=== PATIENT | female | born 1930 | race Caucasian/White ===

== ENCOUNTER → 2016-09-16 | Outpatient (CLI) | payer MEDICARE, BC ==
[~2016-09-16] MED LIST: AKWASOL OU; ARNIGEL TOP; ASPI81TA85 PO; ATEN25TA PO; BACITAB3 PO; CLAR10CA3 PO; COLA100C PO; ENBR50IN2 SC; LEFL1TAB4 PO; LEVO75TA4 PO; LISI-538 PO; MILKSUS PO; MIRA3350 PO; NEUR300C PO; OMEP20CA3 PO; PERC5TAB6 PO; PRIL20CA9 PO; PROA1AER INH; SAVITAB PO; SENO8.6T2 PO; SYMB16INH INH; TORS10TA3 PO; TYLE500T78 PO; VITA200016 PO; XARE10TA PO
--- NOTE | 2016-09-16 19:44 | REP ---
Chest x-ray PA and lateral 09/16/2016: Comparison: 02/15/2016. Clinical history: Bronchitis, unspecified. Cough for 3 weeks. Findings: Lungs are adequately inflated. The right diaphragm shows elevation anteriorly but no pleural effusion, lateral pleural thickening, apical scarring or pneumothorax. There is some minor basilar atelectatic change along the diaphragm, but no consolidation. There is peribronchial thickening noted suggesting bronchitis or reactive airway disease. The aorta is calcified at the arch, mildly tortuous. Airway intact. No mediastinal or hilar mass. Bony thorax shows no focal lesion. Impression: 1. Perihilar changes of bronchitis or reactive airway disease without dense consolidation, effusion, cardiomegaly or edema. Some eventration right diaphragm. Minor compressive atelectatic changes adjacent. Signed by Javad Trinidad MD 09/16/2016 08:07 P
== END ==
LOC: M ADAMS 16:47
PROVIDERS: ATTEND Physician Assistant
DX: J40 Bronchitis, not specified as acute or chronic (principal)
CPT/HCPCS: 71020; G0463

== ENCOUNTER → 2017-03-05 | Outpatient (REF) | payer MEDICARE ==
[~2017-03-05] MED LIST changes: +BACITAB PO; -BACITAB3 PO; -COLA100C PO; +COLA100C5 PO; +PERC5TAB12 PO; -PERC5TAB6 PO; -PROA1AER INH; +PROAAER10 INH; -SENO8.6T2 PO; +SENO8.6T5 PO
[2017-03-05 13:22] LABS: ALBUMIN 3.7 GM/DL (3.2-5.2); ALBUMIN/GLOBULIN RATIO 1.23 (1.00-1.93); BILIRUBIN,TOTAL 0.4 MG/DL (0.2-1.0); CALCIUM LEVEL 8.8 MG/DL (8.8-10.2); CREATININE FOR GFR 1.09 MG/DL (0.55-1.02); FREE T4 0.93 NG/DL (0.76-1.46); GLOMERULAR FILTRATION RATE 50.5 (>32); POTASSIUM SERUM 4.4 MEQ/L (3.5-5.1); TOTAL PROTEIN 6.7 GM/DL (6.4-8.2)
== END ==
LOC: M SFHCADAM 08:52
PROVIDERS: ATTEND Physician Assistant
DX: I10 Essential (primary) hypertension (principal); E03.9 Hypothyroidism, unspecified; E78.4 Other hyperlipidemia

== ENCOUNTER → 2017-10-13 | Outpatient (CLI) | payer MEDICARE | LOC: M ADAMS 10:36 | DX: J45.901 Unspecified asthma with (acute) exacerbation (principal); J20.9 Acute bronchitis, unspecified | CPT/HCPCS: 71046 ==

== ENCOUNTER → 2017-11-03 | Outpatient (REF) | payer MEDICARE ==
[2017-11-03 13:26] LABS: HEMATOCRIT 37.1 % (36.0-47.0); MEAN CORPUSCULAR HEMOGLOBIN 31.7 pg (27.0-33.0); MEAN CORPUSCULAR HGB CONC 32.3 g/dl (32.0-36.5); MEAN CORPUSCULAR VOLUME 98.1 fl (80.0-96.0); PLATELET COUNT, AUTOMATED 212 10^3/uL (150-450); RED BLOOD COUNT 3.78 10^6/uL (4.00-5.40); RED CELL DISTRIBUTION WIDTH 14.2 % (11.5-14.5); WHITE BLOOD COUNT 6.8 10^3/uL (4.0-10.0)
[2017-11-03 13:44] LABS: ALBUMIN 3.8 GM/DL (3.2-5.2); ALBUMIN/GLOBULIN RATIO 1.41 (1.00-1.93); ALKALINE PHOSPHATASE 53 U/L (45-117); ALT/SGPT 16 U/L (12-78); ANION GAP 6 MEQ/L (8-16); AST/SGOT 8 U/L (7-37); BILIRUBIN,TOTAL 0.3 MG/DL (0.2-1.0); BLOOD UREA NITROGEN 37 MG/DL (7-18); CALCIUM LEVEL 8.9 MG/DL (8.8-10.2); CARBON DIOXIDE LEVEL 31 MEQ/L (21-32); CHLORIDE LEVEL 106 MEQ/L (98-107); CREATININE FOR GFR 1.28 MG/DL (0.55-1.30); GLOMERULAR FILTRATION RATE 41.9 (>32); GLUCOSE, FASTING 98 MG/DL (70-100); POTASSIUM SERUM 4.1 MEQ/L (3.5-5.1); SODIUM LEVEL 143 MEQ/L (136-145); TOTAL PROTEIN 6.5 GM/DL (6.4-8.2)
== END ==
LOC: M SFHCADAM 09:27
DX: I10 Essential (primary) hypertension (principal)
CPT/HCPCS: 80053

== ENCOUNTER 2017-11-16 00:21 | Emergency (ER) | payer MEDICARE ==
[2017-11-16] MEDS: ACETAMINOPHEN TAB 650MG DOSE (2X325MG) PO (02:33)
== END 2017-11-16 03:17 | disposition home or self-care (01) ==
LOC: M ED 03:17
DX: S46.911A Strain of unspecified muscle, fascia and tendon at shoulder and upper arm level, right arm, initial encounter (principal); M25.551 Pain in right hip; W07.XXXA Fall from chair, initial encounter; Y92.89 Other specified places as the place of occurrence of the external cause; I10 Essential (primary) hypertension; K21.9 Gastro-esophageal reflux disease without esophagitis; E78.5 Hyperlipidemia, unspecified; M06.9 Rheumatoid arthritis, unspecified; Z88.5 Allergy status to narcotic agent; Z88.8 Allergy status to other drugs, medicaments and biological substances; Z79.899 Other long term (current) drug therapy; Z79.51 Long term (current) use of inhaled steroids; Z79.82 Long term (current) use of aspirin; Z79.01 Long term (current) use of anticoagulants
CPT/HCPCS: 73030

== ENCOUNTER → 2018-02-10 | Outpatient (REF) | payer MEDICARE ==
[2018-02-10 20:00] LABS: CPK CREATINE PHOSPHOKINASE 93 U/L (26-192)
== END ==
LOC: M SFHCADAM 13:56
DX: R25.2 Cramp and spasm (principal)
CPT/HCPCS: 82550

== ENCOUNTER → 2018-02-15 | Outpatient (CLI) | payer MEDICARE | LOC: M RAD 11:17 | DX: N28.1 Cyst of kidney, acquired (principal) | CPT/HCPCS: 76775 ==

== ENCOUNTER 2018-05-29 07:35 | Emergency (ER) | payer MEDICARE ==
[2018-05-29 08:59] LABS: BASO % 0.6 % (0.0-1.0); EOS # 0.2 10^3/uL (0.0-0.50); EOS % 2.8 % (0.0-3.0); HEMATOCRIT 34.2 % (36.0-47.0); HEMOGLOBIN 10.8 g/dl (12.0-15.5); IMMATURE GRANULOCYTE % 0.3 % (0-3.0); LYMPH % 27.6 % (24.0-44.0); MEAN CORPUSCULAR HGB CONC 31.6 g/dl (32.0-36.5); MEAN CORPUSCULAR VOLUME 101.2 fl (80.0-96.0); MONO # 0.7 10^3/uL (0.0-0.8); MONO % 9.2 % (0.0-5.0); NEUTROPHILS # 4.2 10^3/uL (1.8-7.7); NEUTROPHILS % 59.5 % (36.0-66.0); PLATELET COUNT, AUTOMATED 197 10^3/uL (150-450); RED BLOOD COUNT 3.38 10^6/uL (4.00-5.40); RED CELL DISTRIBUTION WIDTH 13.3 % (11.5-14.5); WHITE BLOOD COUNT 7.1 10^3/uL (4.0-10.0)
[2018-05-29] MEDS: traMADol 50 MG TAB PO (08:59)
[2018-05-29 09:19] LABS: ERYTHROCYTE SEDIMENTATION RATE 34 mm/hr (0-42)
[2018-05-29 09:32] LABS: ALBUMIN 3.3 GM/DL (3.2-5.2); ALBUMIN/GLOBULIN RATIO 1.18 (1.00-1.93); ALKALINE PHOSPHATASE 60 U/L (45-117); ALT/SGPT 12 U/L (12-78); ANION GAP 9 MEQ/L (8-16); AST/SGOT 9 U/L (7-37); BILIRUBIN,DIRECT < 0.1 MG/DL (0.0-0.2); BILIRUBIN,TOTAL 0.2 MG/DL (0.2-1.0); BLOOD UREA NITROGEN 21 MG/DL (7-18); C REACTIVE PROTEIN QUANTITATIV 0.96 MG/DL (0.00-0.30); CALCIUM LEVEL 8.6 MG/DL (8.8-10.2); CARBON DIOXIDE LEVEL 25 MEQ/L (21-32); CHLORIDE LEVEL 107 MEQ/L (98-107); CREATININE FOR GFR 1.17 MG/DL (0.55-1.30); GLOMERULAR FILTRATION RATE 46.5 (>32); GLUCOSE, FASTING 83 MG/DL (70-100); POTASSIUM SERUM 4.2 MEQ/L (3.5-5.1); SODIUM LEVEL 141 MEQ/L (136-145); TOTAL PROTEIN 6.1 GM/DL (6.4-8.2)
[2018-05-29] MEDS: LIDOCAINE 5% (LIDODERM) PATCH TD (10:46)
[2018-05-29] MEDS ORDERED: **NOTE PATIENT COMMENT** MISC XX (21:00)
== END 2018-05-29 12:54 | disposition home or self-care (01) ==
LOC: M ED 07:35
DX: M48.00 Spinal stenosis, site unspecified (principal); M54.5 Low back pain; G89.29 Other chronic pain; R26.2 Difficulty in walking, not elsewhere classified; M79.7 Fibromyalgia; M06.9 Rheumatoid arthritis, unspecified; I10 Essential (primary) hypertension; E78.5 Hyperlipidemia, unspecified; E07.9 Disorder of thyroid, unspecified; J45.909 Unspecified asthma, uncomplicated; Z88.5 Allergy status to narcotic agent; Z88.8 Allergy status to other drugs, medicaments and biological substances; Z87.891 Personal history of nicotine dependence; Z79.899 Other long term (current) drug therapy; Z79.51 Long term (current) use of inhaled steroids; Z79.82 Long term (current) use of aspirin; Z79.01 Long term (current) use of anticoagulants
CPT/HCPCS: 93970

== ENCOUNTER → 2018-06-20 | Outpatient (REF) | payer MEDICARE ==
[2018-06-20 12:53] LABS: HEMOGLOBIN 11.1 g/dl (12.0-15.5); MEAN CORPUSCULAR HEMOGLOBIN 31.2 pg (27.0-33.0); MEAN CORPUSCULAR HGB CONC 30.8 g/dl (32.0-36.5); MEAN CORPUSCULAR VOLUME 101.1 fl (80.0-96.0); PLATELET COUNT, AUTOMATED 250 10^3/uL (150-450); RED BLOOD COUNT 3.56 10^6/uL (4.00-5.40); RED CELL DISTRIBUTION WIDTH 13.2 % (11.5-14.5); WHITE BLOOD COUNT 8.8 10^3/uL (4.0-10.0)
[2018-06-20 13:06] LABS: ALBUMIN 3.5 GM/DL (3.2-5.2); ALBUMIN/GLOBULIN RATIO 1.13 (1.00-1.93); ALKALINE PHOSPHATASE 72 U/L (45-117); ALT/SGPT 15 U/L (12-78); ANION GAP 8 MEQ/L (8-16); AST/SGOT 10 U/L (7-37); BILIRUBIN,TOTAL 0.3 MG/DL (0.2-1.0); BLOOD UREA NITROGEN 27 MG/DL (7-18); CALCIUM LEVEL 8.8 MG/DL (8.8-10.2); CARBON DIOXIDE LEVEL 28 MEQ/L (21-32); CHLORIDE LEVEL 106 MEQ/L (98-107); CHOLESTEROL LEVEL 223 MG/DL (<200); CHOLESTEROL RISK RATIO 4.129 (<5); CREATININE FOR GFR 1.15 MG/DL (0.55-1.30); GLOMERULAR FILTRATION RATE 47.4 (>32); GLUCOSE, FASTING 95 MG/DL (70-100); HDL CHOLESTEROL 54 MG/DL (>40); LDL CHOLESTEROL 138 MG/DL (<100); NON-HDL-C 169 MG/DL; POTASSIUM SERUM 4.6 MEQ/L (3.5-5.1); SODIUM LEVEL 142 MEQ/L (136-145); TOTAL PROTEIN 6.6 GM/DL (6.4-8.2); TRIGLYCERIDES LEVEL 154 MG/DL (<150)
== END ==
LOC: M SFHCADAM 08:05
DX: R25.2 Cramp and spasm (principal); I25.10 Atherosclerotic heart disease of native coronary artery without angina pectoris
CPT/HCPCS: 80053

== ENCOUNTER → 2018-11-23 | Outpatient (REF) | payer MEDICARE ==
[~2018-11-23] MED LIST changes: +LIDO5DIS41 TOP; +MILK120011 PO; -MILKSUS PO; +TRAM50TA2 PO
[2018-11-23 11:13] LABS: ALBUMIN 3.8 GM/DL (3.2-5.2); BILIRUBIN,TOTAL 0.3 MG/DL (0.2-1.0); CALCIUM LEVEL 8.4 MG/DL (8.8-10.2); CHOLESTEROL RISK RATIO 3.078 (<5); CREATININE FOR GFR 1.35 MG/DL (0.55-1.30); FREE T4 0.81 NG/DL (0.76-1.46); GLOMERULAR FILTRATION RATE 39.3 (>32); POTASSIUM SERUM 4.2 MEQ/L (3.5-5.1); THYROID STIMULATING HORMONE 4.89 uIU/ML (0.358-3.740); TOTAL PROTEIN 7.3 GM/DL (6.4-8.2)
== END ==
LOC: M SFHCADAM 09:11
PROVIDERS: ATTEND Physician Assistant
DX: I25.10 Atherosclerotic heart disease of native coronary artery without angina pectoris (principal); E03.9 Hypothyroidism, unspecified; I10 Essential (primary) hypertension

== ENCOUNTER → 2019-01-31 | Outpatient (REF) | payer MEDICARE ==
[2019-01-31 13:05] LABS: ALBUMIN 3.4 GM/DL (3.2-5.2); BILIRUBIN,TOTAL 0.3 MG/DL (0.2-1.0); CALCIUM LEVEL 8.6 MG/DL (8.8-10.2); CREATININE FOR GFR 1.14 MG/DL (0.55-1.30); GLOMERULAR FILTRATION RATE 47.8 (>32); POTASSIUM SERUM 4.4 MEQ/L (3.5-5.1); TOTAL PROTEIN 6.6 GM/DL (6.4-8.2)
== END ==
LOC: M SFHCADAM 08:30
PROVIDERS: ATTEND Physician Assistant
DX: M06.9 Rheumatoid arthritis, unspecified (principal)

== ENCOUNTER 2019-02-08 10:17 | Emergency (ER) | payer MEDICARE ==
[2019-02-08] MEDS ORDERED: GABAPENTIN 300 MG CAP PO ONE (11:15)
[2019-02-08] MEDS ORDERED: ACETAMINOPHEN 500 MG TAB PO ONE (11:15)
[2019-02-08] MEDS ORDERED: LIDOCAINE 5% (LIDODERM) PATCH TD ONE (11:15)
[2019-02-08] MEDS ORDERED: traMADol 50 MG TAB PO ONE (14:00)
[2019-02-08 16:55] VITALS: BP 139/63
--- NOTE | 2019-02-08 20:10 | ECGEPIP ---
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
[2019-02-08] MEDS ORDERED: **NOTE PATIENT COMMENT** MISC XX SCH (21:00)
== END 2019-02-08 17:22 | disposition home or self-care (01) ==
LOC: M ED 10:17
DX: M48.00 Spinal stenosis, site unspecified (principal); I10 Essential (primary) hypertension; J45.909 Unspecified asthma, uncomplicated; M06.9 Rheumatoid arthritis, unspecified; E78.9 Disorder of lipoprotein metabolism, unspecified; E07.9 Disorder of thyroid, unspecified; Z79.899 Other long term (current) drug therapy; Z79.890 Hormone replacement therapy; Z79.82 Long term (current) use of aspirin; Z88.5 Allergy status to narcotic agent; Z88.8 Allergy status to other drugs, medicaments and biological substances; Z87.891 Personal history of nicotine dependence

== ENCOUNTER → 2019-02-21 | Outpatient (REF) | payer MEDICARE ==
[2019-02-21 12:35] LABS: HEMATOCRIT 36.6 % (36.0-47.0); HEMOGLOBIN 11.2 g/dl (12.0-15.5); MEAN CORPUSCULAR HEMOGLOBIN 31.6 pg (27.0-33.0); MEAN CORPUSCULAR HGB CONC 30.6 g/dl (32.0-36.5); MEAN CORPUSCULAR VOLUME 103.4 fl (80.0-96.0); PLATELET COUNT, AUTOMATED 245 10^3/uL (150-450); RED BLOOD COUNT 3.54 10^6/uL (4.00-5.40); WHITE BLOOD COUNT 10.5 10^3/uL (4.0-10.0)
[2019-02-21 13:16] LABS: ALBUMIN 3.2 GM/DL (3.2-5.2); BILIRUBIN,TOTAL 0.2 MG/DL (0.2-1.0); CALCIUM LEVEL 8.8 MG/DL (8.8-10.2); CREATININE FOR GFR 1.07 MG/DL (0.55-1.30); GLOMERULAR FILTRATION RATE 51.4 (>32); POTASSIUM SERUM 3.9 MEQ/L (3.5-5.1); TOTAL PROTEIN 6.5 GM/DL (6.4-8.2)
== END ==
LOC: M SFHCADAM 10:37
PROVIDERS: ATTEND Physician Assistant
DX: I51.89 Other ill-defined heart diseases (principal)

== ENCOUNTER → 2019-02-21 | Outpatient (CLI) | payer MEDICARE ==
[~2019-02-21] MED LIST changes: +ACET500T15 PO; +ALBU83IN INH; +BISO5TAB5 PO; +CALC600T18 PO; +FLON1SPR NARES; +GABA-843 PO; +LORA-622 PO; +REFR0.5D8 OU; +SULF50TA PO; +SYNT75TA PO; +TIZA4TAB4 PO; +VITA200021 PO
--- NOTE | 2019-02-21 12:29 | REP ---
PA and lateral chest: Comparison is 10/13/2017. There is chronic elevation of the right hemidiaphragm. This is unchanged. This is likely from eventration. Lung albarran are clear and unchanged. Cardiac size is upper normal, unchanged. The ondina and mediastinum are unchanged unremarkable. There is grade 2 wedge shaped compression deformity of the approximate T7 vertebral body as an interval change. The skeletal structures are otherwise unremarkable. Impression: Chronic elevation of the right hemidiaphragm. Lung albarran are clear. Grade 2 wedge shaped compression deformity of the approximate T7 vertebral body as an interval change. Electronically Signed by Marcel Garcia MD 02/21/2019 12:20 P
== END ==
LOC: M ADAMS 10:56
PROVIDERS: ATTEND Physician Assistant
DX: I51.89 Other ill-defined heart diseases (principal)
CPT/HCPCS: 71046; 80053; 83880; 85027; G0463

== ENCOUNTER 2019-02-24 11:02 | Inpatient (IN) | payer MEDICARE ==
[~2019-02-24] VITALS: Ht 149.9 cm; Wt 83.8 kg
[~2019-02-24 11:02] MED LIST changes: -ACET500T15 PO; -ALBU83IN INH; -BISO5TAB5 PO; -CALC600T18 PO; -FLON1SPR NARES; -GABA-843 PO; -LORA-622 PO; -REFR0.5D8 OU; -SULF50TA PO; -SYNT75TA PO; -TIZA4TAB4 PO; -VITA200021 PO
[2019-02-24] MEDS ORDERED: NS 500 ML IV ONE ×2 (11:15→11:45)
[2019-02-24] MEDS ORDERED: GLUCAGON FOR INJ 1 MG VIAL (J1610) IV STA (11:16)
[2019-02-24 11:29] LABS: BASO # 0.1 10^3/uL (0.0-0.2); BASO % 0.5 % (0.0-1.0); EOS # 0.3 10^3/uL (0.0-0.50); EOS % 2.4 % (0.0-3.0); HEMATOCRIT 31.5 % (36.0-47.0); LYMPH # 2.2 10^3/uL (1.5-4.5); LYMPH % 18.6 % (24.0-44.0); MEAN CORPUSCULAR HEMOGLOBIN 32.4 pg (27.0-33.0); MEAN CORPUSCULAR HGB CONC 31.7 g/dl (32.0-36.5); MEAN CORPUSCULAR VOLUME 101.9 fl (80.0-96.0); MONO # 1.1 10^3/uL (0.0-0.8); MONO % 8.8 % (0.0-5.0); NEUTROPHILS # 8.3 10^3/uL (1.8-7.7); NEUTROPHILS % 69.1 % (36.0-66.0); PLATELET COUNT, AUTOMATED 222 10^3/uL (150-450); RED BLOOD COUNT 3.09 10^6/uL (4.00-5.40)
--- NOTE | 2019-02-24 11:36 | REP ---
Portable chest x-ray: Single view. History: Drug overdose. Comparison study: February 21. Findings: The lungs are exposed at a relatively low level of inspiration. Right hemidiaphragm is elevated unchanged. No infiltrate is seen. Mild cardiomegaly is observed. The aorta is calcific and tortuous. Pulmonary vasculature is not increased. EKG electrodes are seen. No significant bony abnormality is seen. Impression: No acute disease. Electronically Signed by Reginald Lyles MD 02/24/2019 11:28 A
[2019-02-24 12:00] LABS: ACETAMINOPHEN LEVEL 7.7 UG/ML (10.0-30.0); ALBUMIN 2.8 GM/DL (3.2-5.2); ALT/SGPT 14 U/L (12-78); BILIRUBIN,DIRECT < 0.1 MG/DL (0.0-0.2); BILIRUBIN,TOTAL 0.1 MG/DL (0.2-1.0); BLOOD UREA NITROGEN 25 MG/DL (7-18); CALCIUM LEVEL 8.4 MG/DL (8.8-10.2); CARBON DIOXIDE LEVEL 28 MEQ/L (21-32); CHLORIDE LEVEL 102 MEQ/L (98-107); CPK CREATINE PHOSPHOKINASE 95 U/L (26-192); CREATININE FOR GFR 1.41 MG/DL (0.55-1.30); ETHYL ALCOHOL (ETHANOL) 0.003 % (0.000-0.010); GLOMERULAR FILTRATION RATE 37.4 (>32); GLUCOSE, FASTING 147 MG/DL (70-100); POTASSIUM SERUM 4.3 MEQ/L (3.5-5.1); SALICYLATE LEVEL < 1.7 MG/DL (5.0-30.0); SODIUM LEVEL 139 MEQ/L (136-145); TOTAL PROTEIN 5.8 GM/DL (6.4-8.2)
[2019-02-24] MEDS ORDERED: NALOXONE INJ 0.4 MG/1 ML VIAL (J2310) IV STA (12:27)
--- NOTE | 2019-02-24 12:29 | REP ---
CT BRAIN WITHOUT CONTRAST: HISTORY: Drug overdose. Comparison CT study October 23, 2014. 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 Bone window settings show no bony calvarial destructive lesion. Visualized paranasal sinuses are clear. Vascular calcification is again noted in the distal carotid arteries. No intraorbital abnormality. There is diffuse moderate cerebral atrophy again noted. Minimal small vessel changes are present. There is no evidence of infarct, hemorrhage, extra-axial fluid collection or mass. IMPRESSION: Vascular calcification and diffuse atrophy. No acute intracranial abnormality. Electronically Signed by Reginald Lyles MD 02/24/2019 03:34 P
[2019-02-24] MEDS ORDERED: CALC600T18 PO (13:18)
[2019-02-24] MEDS ORDERED: OMEP20CA3 PO (13:18)
[2019-02-24] MEDS ORDERED: TRAM50TA2 PO (13:18)
[2019-02-24] MEDS ORDERED: GABA-843 PO (13:18)
[2019-02-24] MEDS ORDERED: SAVITAB PO (13:18)
[2019-02-24] MEDS ORDERED: REFR0.5D8 OU (13:18)
[2019-02-24] MEDS ORDERED: ALBU83IN INH (13:18)
[2019-02-24] MEDS ORDERED: LISI-538 PO (13:18)
[2019-02-24] MEDS ORDERED: SULF50TA PO (13:18)
[2019-02-24] MEDS ORDERED: SYMB16INH INH (13:18)
[2019-02-24] MEDS ORDERED: TORS10TA3 PO (13:18)
[2019-02-24] MEDS ORDERED: SYNT75TA PO (13:18)
[2019-02-24] MEDS ORDERED: BISO5TAB5 PO (13:18)
[2019-02-24] MEDS ORDERED: FLON1SPR NARES (13:18)
[2019-02-24] MEDS ORDERED: ASPI81TA85 PO (13:18)
[2019-02-24] MEDS ORDERED: LORA-622 PO (13:18)
[2019-02-24] MEDS ORDERED: MIRA3350 PO (13:18)
[2019-02-24] MEDS ORDERED: ACET500T15 PO (13:18)
[2019-02-24] MEDS ORDERED: TIZA4TAB4 PO (13:18)
[2019-02-24] MEDS ORDERED: VITA200021 PO (13:18)
[2019-02-24] MEDS ORDERED: PROAAER10 INH (13:18)
--- NOTE | 2019-02-24 14:29 | HPE ---
DATE OF ADMISSION: 02/24/2019 CHIEF COMPLAINT: Unintentional overdose of tizanidine. HISTORY: Kenya Jenkins is an 88-year-old patient of CLAUDIA Hayden in the [facility]. She has been in failing health and failing memory, particularly more so over the last year. Today she was brought to the operating room after apparently taking an unintentional overdose of tizanidine which she receives from [facility] for her chronic back pain. Per the emergency room, there were an unspecified number of medications that were missing. In the emergency room, she was bradycardic with a heart rate in the 40s, and systolic blood pressure in the mid 80s. Because she has beta barb at home she was given some empiric glucagon in the emergency room without significant improvement in her vital signs. There is an unspecified number of tizanidine that are missing, but per emergency room staff the bottle was nearly empty, when she should have by reports had at least a half a bottle. The patient denies taking an excess number of these. She thinks she might have been taking two at a time rather one at a time per dose. PAST MEDICAL HISTORY: Shows: Rheumatoid arthritis. She is seen by Dr. Lawrence. She used to be followed by [facility]. She was on Enbrel in the past, now on sulfasalazine. Coronary artery disease (CAD). She had a nuclear stress test 03/2014, abnormal perfusion, probably some apical ischemia, ejection fraction of 74%. She has lumbosacral spinal stenosis followed by Dr. Umaña at the [facility]. She gets physical therapy through there. They have prescribed tizanidine and tramadol for her back pain. She had an echocardiogram 2017, normal ventricular size and systolic function. Minor diastolic dysfunction noted. She has a history of hypertensive heart disease. Hyperlipidemia. Hypothyroidism. Vitamin D deficiency. Asthma. MEDICATIONS: Office list is : - sulfasalazine 500 mg twice a day - omeprazole 20 mg daily - vitamin D 2000 units daily - albuterol nebulizer three times a day - aspirin 81 mg daily - albuterol puffer as needed - gabapentin 300 mg three times a day - Flonase spray - MiraLAX - Symbicort 160-4.5, two puffs twice a day - Claritin - tramadol 50 mg every 4 hours as needed - bisoprolol 5 mg daily - levothyroxine 75 mcg daily - torsemide 10 mg tablets, two tablets in the morning and one tablet in the afternoon - lisinopril 20 mg daily ALLERGIES: 1. MORPHINE causes nausea and vomiting. 2. TESSALON PERLES caused her face to swell. SURGICAL HISTORY: Bilateral knee replacements. Hysterectomy. Appendectomy. Tonsillectomy. Carpal tunnel release bilaterally. Cataract extraction. Right hip open reduction internal fixation (ORIF) after fracture 04/2015. She had a coloscopy in 2013 with polypectomy. FAMILY HISTORY: Father of a stroke. Mother of heart problems. She has an aunt with rheumatoid arthritis. She had a sister who of unspecified cancer. Another sister of Alzheimer's complications. SOCIAL HISTORY: Former smoker, quit 50 years ago. No significant alcohol intake. She is . She lives alone. REVIEW OF SYSTEMS: No chest pain. History of seizures. Denies any recent falls, though office record from 02/21/2019 says she fell recently trying to get into bed. No palpitations. No chest pain. PHYSICAL EXAMINATION: Systolic blood pressure is in the 80s, heart rate in the 40s, sinus bradycardia. Vital signs per flow sheet. General appearance: Alert and conversant. Recognizes me from hallway. Pupils equal, round and reactive to light. Tympanic membranes and oropharynx benign. Neck no masses. Lungs clear. Heart regular rhythm without murmur. Abdomen soft, nontender. No masses. No peripheral edema. Moves arms and legs with equal strength. EKG shows sinus bradycardia with prolonged QT interval. Toxicology screen unremarkable. White count 12, hemoglobin 10, which is baseline, platelets are 222. Sodium 139, potassium 4.3, BUN 25, creatinine 1.4, baseline creatinine is around 1. Chest x-ray showed no active disease. CT of the head atrophy, no acute findings. IMPRESSION: 1. Unintentional overdose of tizanidine. She will be admitted to a monitored bed. She is bradycardic and hypotensive, but is tolerating this well. I have ordered IV saline and telemetry monitoring. I do not think she overdosed on her beta-barb as she had no significant response to the glucagon. TSH is a little suppressed, but the dose of levothyroxine was only recently increased. Repeat EKG ordered for tomorrow. If her heart rate is improved and blood pressure is back to baseline she will probably go home tomorrow. 2. Hypertensive heart disease. Hold her lisinopril and bisoprolol for now. 3. Rheumatoid arthritis. Continue her sulfasalazine. Per primary provider she was recently weaned off prednisone. She seemed much more functional when she was taking this, more arthritic pain since stopped. 4. Hypothyroidism. Continue levothyroxine 75 mcg daily. 5. Asthma. Continue her nebulized bronchodilator and albuterol on an as needed basis. 6. Deep vein thrombosis (DVT) prophylaxis with heparin has been ordered.
[2019-02-24] MEDS: KCL 20MEQ in NS 1000ML 1,000 ML IV SCH ×2 (14:49→23:45)
[2019-02-24] MEDS: ASPIRIN 81 MG ENTERIC TAB PO SCH (14:49)
[2019-02-24] MEDS: OMEPRAZOLE 20 MG CAP PO SCH (14:49)
[2019-02-24 16:00] VITALS: BP 127/56
[2019-02-24] MEDS: GABAPENTIN 300 MG CAP PO SCH ×2 (17:20→20:21)
[2019-02-24] MEDS: HEPARIN SOD (PORCINE) 5000 UNITS/ML VIAL SQ SCH (20:21)
[2019-02-24] MEDS: sulfaSALAzine 500 MG TABEC PO SCH (20:21)
[2019-02-24] MEDS: ACETAMINOPHEN 500 MG TAB PO PRN (21:41)
[2019-02-24] MEDS: SYMBICORT 160/4.5MCG INHALER 6GM INH SCH (21:43)
[2019-02-24 22:00] VITALS: BP 144/66
[2019-02-25] VITALS: BP 131/62
[2019-02-25 04:00] VITALS: BP 126/60
[2019-02-25 05:03] LABS: HEMOGLOBIN 9.2 g/dl (12.0-15.5); MEAN CORPUSCULAR HEMOGLOBIN 31.6 pg (27.0-33.0); MEAN CORPUSCULAR HGB CONC 31.7 g/dl (32.0-36.5); MEAN CORPUSCULAR VOLUME 99.7 fl (80.0-96.0); PLATELET COUNT, AUTOMATED 196 10^3/uL (150-450); RED BLOOD COUNT 2.91 10^6/uL (4.00-5.40); WHITE BLOOD COUNT 7.9 10^3/uL (4.0-10.0)
[2019-02-25 05:32] LABS: CALCIUM LEVEL 7.9 MG/DL (8.8-10.2); CREATININE FOR GFR 0.98 MG/DL (0.55-1.30); GLOMERULAR FILTRATION RATE 56.9 (>32); POTASSIUM SERUM 4.3 MEQ/L (3.5-5.1)
[2019-02-25] MEDS: LEVOTHYROXINE 75MCG TABLET (0.075MG) PO SCH (06:15)
[2019-02-25] MEDS: ACETAMINOPHEN 500 MG TAB PO PRN ×2 (06:15→15:39)
[2019-02-25] MEDS: KCL 20MEQ in NS 1000ML 1,000 ML IV SCH ×3 (07:53→22:00)
[2019-02-25] MEDS: SYMBICORT 160/4.5MCG INHALER 6GM INH SCH ×2 (07:55→21:22)
[2019-02-25 08:00] VITALS: BP 164/73
[2019-02-25] MEDS: ASPIRIN 81 MG ENTERIC TAB PO SCH (09:35)
[2019-02-25] MEDS: sulfaSALAzine 500 MG TABEC PO SCH ×2 (09:35→21:00)
[2019-02-25] MEDS: FLUTICASONE PROP 0.05% NASAL SPRAY 16 GM (FLONASE) NARES SCH (09:35)
[2019-02-25] MEDS: GABAPENTIN 300 MG CAP PO SCH ×3 (09:36→21:00)
[2019-02-25] MEDS: HEPARIN SOD (PORCINE) 5000 UNITS/ML VIAL SQ SCH ×2 (09:36→21:00)
[2019-02-25] MEDS: OMEPRAZOLE 20 MG CAP PO SCH (09:36)
[2019-02-25 12:00] VITALS: BP 173/69
[2019-02-25 16:00] VITALS: BP 170/84
--- NOTE | 2019-02-25 17:03 | ECGEPIP ---
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
--- NOTE | 2019-02-25 17:23 | IPNPDOC ---
Subjective Date Seen The patient was seen on 02/25/19. Subjective Chief Complaint/HPI Seen in PCU, with daughter at the bedside. She admits that she confused her medication yesterday, though she can not name which medications she should have been taking, or any of them, really. Daughter states that on a weekly basis she could set out her mother's medications, but that she could not monitor medications on a daily basis. Patient states that she has been doing PT on an outpatient basis, though her swollen feet make it uncomfortable. Daughter states that she and her son have been encouraging their mother to consider assisted living, but patient is uninterested, states that her current apartment is affordable and has safety features that allow her to call for help. She states that she has an aide in home for a limited time, but has been told that she would qualify for more. Constitutional: Denies: Chills, Fever ENT: Denies: Head Aches Pulmonary: Denies: Dyspnea, Cough Cardiovascular: Denies: Chest Pain Gastrointestinal: Denies: Nausea, Vomiting, Diarrhea, Constipation Neurological: Reports: Other Symptoms (no dizziness); Denies: Weakness, Change in speech (though admits it yesterday) Objective Physical Examination General Exam: Positive: Alert, Cooperative, No Acute Distress Eye Exam: Positive: Conjunctiva & lids normal ENT Exam: Positive: Mucous membr. moist/pink Chest Exam: Positive: Clear to auscultation, Normal air movement Heart Exam: Positive: Rate Normal, Regular Rhythm; Negative: Bradycardic Extremity Exam: Negative: Swelling Skin Exam: Positive: Nl turgor and temperature; Negative: Rash Neuro Exam: Positive: Normal Speech Psych Exam: Positive: Memory Intact Assessment /Plan Problems (1) Accidental overdose Status: Acute Problem Text: Discussed with daughter the need for patient to not set out her own medications upon discharge. Daughter states that she can set them out a week at time, if patient is discharged to home. (2) Bradycardia Status: Resolved Problem Text: Secondary to medication overdose. Now resolved. (3) Hypotension Status: Resolved Problem Text: Hypotension now resolved, and patient is back on home bisoprolol and Lasix. (4) Physical deconditioning Problem Text: PT consulted, patient is not deemed safe for discharge at this time. May require AL or SNF upon DC, will see how she progresses. Plan/VTE VTE Prophylaxis Ordered?: Yes VS, I&O, 24H, Fishbone Vital Signs/I&O Vital Signs Date Time Temp Pulse Resp B/P (MAP) Pulse Ox O2 Delivery O2 Flow Rate FiO2 02/25/19 16:00 97.6 89 18 170/84 (112) 94 02/24/19 15:00 Nasal Cannula 1.0 I&O- Last 24 Hours up to 6 AM 02/25/19 06:00 Intake Total 3090 ml Output Total 725 ml Balance 2365 ml Laboratory Data 24H LABS Laboratory Tests 2 02/25/19 04:43: Nucleated Red Blood Cells % (auto) 0.0, Anion Gap 5L, Glomerular Filtration Rate 56.9, Blood Urea Nitrogen 20H, Creatinine 0.98, Sodium Level 142, Potassium Level 4.3, Chloride Level 110H, Carbon Dioxide Level 27, Calcium Level 7.9L CBC/BMP Laboratory Tests 02/25/19 04:43 Red Blood Count 2.91 L, Mean Corpuscular Volume 99.7 H, Mean Corpuscular Hemoglobin 31.6, Mean Corpuscular Hemoglobin Concent 31.7 L, Red Cell D istribution Width 13.9, Calcium Level 7.9 L PREMA FIGUEROA DO Feb 25, 2019 17:23
[2019-02-25] MEDS: BISOPROLOL FUMARATE 5 MG TAB PO SCH (17:30)
[2019-02-25] MEDS: TORSEMIDE 20 MG TAB PO SCH (17:30)
[2019-02-26] VITALS (7 sets, daily range): BP systolic 120–167; BP diastolic 60–72
[2019-02-26 05:19] LABS: HEMOGLOBIN 10.3 g/dl (12.0-15.5); MEAN CORPUSCULAR HEMOGLOBIN 31.5 pg (27.0-33.0); MEAN CORPUSCULAR HGB CONC 31.2 g/dl (32.0-36.5); MEAN CORPUSCULAR VOLUME 100.9 fl (80.0-96.0); PLATELET COUNT, AUTOMATED 239 10^3/uL (150-450); RED BLOOD COUNT 3.27 10^6/uL (4.00-5.40); WHITE BLOOD COUNT 10.8 10^3/uL (4.0-10.0)
[2019-02-26 05:43] LABS: CALCIUM LEVEL 8.5 MG/DL (8.8-10.2); CREATININE FOR GFR 1.11 MG/DL (0.55-1.30); GLOMERULAR FILTRATION RATE 49.3 (>32); POTASSIUM SERUM 4.5 MEQ/L (3.5-5.1)
[2019-02-26] MEDS: KCL 20MEQ in NS 1000ML 1,000 ML IV SCH (06:31)
--- NOTE | 2019-02-26 06:35 | ECGEPIP ---
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
[2019-02-26] MEDS: SYMBICORT 160/4.5MCG INHALER 6GM INH SCH ×2 (07:09→20:20)
[2019-02-26] MEDS: HEPARIN SOD (PORCINE) 5000 UNITS/ML VIAL SQ SCH ×2 (09:59→20:22)
[2019-02-26] MEDS: sulfaSALAzine 500 MG TABEC PO SCH ×2 (09:59→20:22)
[2019-02-26] MEDS: OMEPRAZOLE 20 MG CAP PO SCH (09:59)
[2019-02-26] MEDS: ASPIRIN 81 MG ENTERIC TAB PO SCH (09:59)
[2019-02-26] MEDS: BISOPROLOL FUMARATE 5 MG TAB PO SCH (09:59)
[2019-02-26] MEDS: GABAPENTIN 300 MG CAP PO SCH ×3 (09:59→20:22)
[2019-02-26] MEDS: TORSEMIDE 20 MG TAB PO SCH ×2 (09:59→17:35)
[2019-02-26] MEDS: FLUTICASONE PROP 0.05% NASAL SPRAY 16 GM (FLONASE) NARES SCH (10:00)
[2019-02-26] MEDS: ONDANSETRON 4MG/2ML VIAL (J2405) IV PRN (10:21)
[2019-02-26] MEDS: ACETAMINOPHEN 500 MG TAB PO PRN ×2 (10:21→23:20)
[2019-02-26] MEDS: LISINOPRIL 20 MG TAB PO SCH (12:54)
--- NOTE | 2019-02-26 21:52 | IPNPDOC ---
Subjective Date Seen The patient was seen on 02/26/19. Subjective Chief Complaint/HPI She complains of some malaise today, notes that she vomited earlier today and had been coughing. Otherwise denies complaints. Constitutional: Denies: Chills, Fever Pulmonary: Reports: Cough; Denies: Dyspnea Cardiovascular: Denies: Chest Pain Gastrointestinal: Reports: Nausea, Vomiting; Denies: Abdominal Pain, Diarrhea, Constipation Objective Physical Examination General Exam: Positive: Alert, Cooperative, No Acute Distress Eye Exam: Positive: Conjunctiva & lids normal ENT Exam: Positive: Mucous membr. moist/pink Chest Exam: Positive: Clear to auscultation, Normal air movement Heart Exam: Positive: Rate Normal, Regular Rhythm; Negative: Bradycardic Extremity Exam: Negative: Swelling Skin Exam: Positive: Nl turgor and temperature; Negative: Rash Neuro Exam: Positive: Normal Speech Psych Exam: Positive: Memory Intact Assessment /Plan Problems (1) Accidental overdose Status: Acute Problem Text: Discussed with daughter the need for patient to not set out her own medications upon discharge. Daughter states that she can set them out a week at time, if patient is discharged to home. (2) Physical deconditioning Problem Text: PT consulted, patient is not deemed safe for discharge at this time. May require AL or SNF upon DC, will see how she progresses. (3) Bradycardia Status: Resolved Problem Text: Secondary to medication overdose. Now resolved. (4) Hypotension Status: Resolved Problem Text: Hypotension now resolved, and patient is back on home bisoprolol and Lasix. (5) Vomiting Problem Text: She admits to an episode of vomiting this morning. When asked, denies bloody or coffee ground emesis. She did state that she "swallowed it really quickly, and it made me sicker." Denied inhaling it. Benign abdominal exam, and nause improved after Zofran; will continue to monitor. Plan/VTE VTE Prophylaxis Ordered?: Yes VS, I&O, 24H, Fishbone Vital Signs/I&O Vital Signs Date Time Temp Pulse Resp B/P (MAP) Pulse Ox O2 Delivery O2 Flow Rate FiO2 02/26/19 20:00 98.8 94 18 146/65 (92) 90 02/24/19 15:00 Nasal Cannula 1.0 I&O- Last 24 Hours up to 6 AM 02/26/19 06:00 Intake Total 3080 ml Output Total 2750 ml Balance 330 ml Laboratory Data 24H LABS Laboratory Tests 2 02/26/19 04:54: Nucleated Red Blood Cells % (auto) 0.0, Anion Gap 5L, Glomerular Filtration Rate 49.3, Blood Urea Nitrogen 13, Creatinine 1.11, Sodium Level 141, Potassium Level 4.5, Chloride Level 111H, Carbon Dioxide Level 25, Calcium Level 8.5L CBC/BMP Laboratory Tests 02/26/19 04:54 Red Blood Count 3.27 L, Mean Corpuscular Volume 100.9 H, Mean Corpuscular Hemoglobin 31.5, Mean Corpuscular Hemoglobin Concent 31.2 L, Red Cell Distribution Width 14.1, Calcium Level 8.5 L PREMA FIGUEROA DO Feb 26, 2019 21:52
[2019-02-27 04:00] VITALS: BP 108/55
[2019-02-27 05:47] LABS: HEMATOCRIT 30.9 % (36.0-47.0); HEMOGLOBIN 9.3 g/dl (12.0-15.5); MEAN CORPUSCULAR HGB CONC 30.1 g/dl (32.0-36.5); MEAN CORPUSCULAR VOLUME 106.2 fl (80.0-96.0); PLATELET COUNT, AUTOMATED 201 10^3/uL (150-450); RED BLOOD COUNT 2.91 10^6/uL (4.00-5.40); WHITE BLOOD COUNT 10.7 10^3/uL (4.0-10.0)
[2019-02-27 06:01] LABS: CALCIUM LEVEL 8.2 MG/DL (8.8-10.2); CREATININE FOR GFR 1.17 MG/DL (0.55-1.30); GLOMERULAR FILTRATION RATE 46.4 (>32); POTASSIUM SERUM 4.1 MEQ/L (3.5-5.1)
[2019-02-27] MEDS: LEVOTHYROXINE 75MCG TABLET (0.075MG) PO SCH (06:18)
[2019-02-27] MEDS: SYMBICORT 160/4.5MCG INHALER 6GM INH SCH ×2 (07:34→20:34)
[2019-02-27 08:00] VITALS: BP 123/58
[2019-02-27] MEDS: ALBUTEROL SULFATE 2.5 MG/0.5 ML INH NEB SOLN INH PRN (09:13)
[2019-02-27] MEDS: BISOPROLOL FUMARATE 5 MG TAB PO SCH (10:08)
[2019-02-27] MEDS: GABAPENTIN 300 MG CAP PO SCH ×3 (10:09→21:46)
[2019-02-27] MEDS: HEPARIN SOD (PORCINE) 5000 UNITS/ML VIAL SQ SCH ×2 (10:09→21:46)
[2019-02-27] MEDS: LISINOPRIL 20 MG TAB PO SCH (10:09)
[2019-02-27] MEDS: OMEPRAZOLE 20 MG CAP PO SCH (10:09)
[2019-02-27] MEDS: ASPIRIN 81 MG ENTERIC TAB PO SCH (10:09)
[2019-02-27] MEDS: FLUTICASONE PROP 0.05% NASAL SPRAY 16 GM (FLONASE) NARES SCH (10:10)
[2019-02-27] MEDS: TORSEMIDE 20 MG TAB PO SCH ×2 (10:10→17:23)
[2019-02-27] MEDS ORDERED: SLF 3 ML SYR IV PRN (11:15)
[2019-02-27] MEDS: sulfaSALAzine 500 MG TABEC PO SCH ×2 (11:15→21:46)
--- NOTE | 2019-02-27 11:35 | IPNPDOC ---
Subjective Date Seen The patient was seen on 02/27/19. Subjective Chief Complaint/HPI concerned about constipation. family supporting recommendation for placement Constitutional: Denies: Chills ENT: Denies: Head Aches Pulmonary: Denies: Dyspnea, Cough Cardiovascular: Denies: Chest Pain, Palpitations Gastrointestinal: Denies: Nausea, Vomiting, Abdominal Pain, Diarrhea Genitourinary: Reports: Dysuria (mild symptoms when asked) Neurological: Reports: Weakness, Numbness Psych: Reports: Mood Normal Objective Physical Examination General Exam: Positive: Alert, Cooperative, No Acute Distress Eye Exam: Positive: Conjunctiva & lids normal ENT Exam: Positive: Mucous membr. moist/pink Chest Exam: Positive: Clear to auscultation, Normal air movement, Rales (bibasilar rales noted, no wheezes.) Heart Exam: Positive: Rate Normal, Regular Rhythm; Negative: Bradycardic Abdomen Exam: Positive: Tenderness (somewhat tender lower abdomen.) Extremity Exam: Negative: Swelling Skin Exam: Positive: Nl turgor and temperature; Negative: Rash Neuro Exam: Positive: Normal Speech Psych Exam: Positive: Memory Intact Assessment /Plan Problems (1) Accidental overdose Status: Acute Problem Text: Discussed with daughter the need for patient to not set out her own medications upon discharge. Daughter states that she can set them out a week at time, if patient is discharged to home. (2) Physical deconditioning Problem Text: PT consulted, patient is not deemed safe for discharge at this time. May require AL or SNF upon DC, will see how she progresses. (3) Bradycardia Status: Resolved Problem Text: Secondary to medication overdose. Now resolved. (4) Hypotension Status: Resolved Problem Text: Hypotension now resolved, and patient is back on home bisoprolol and Lasix. (5) Vomiting Problem Text: 02/27: no emesis today. She admits to an episode of vomiting this morning. When asked, denies bloody or coffee ground emesis. She did state that she "swallowed it really quickly, and it made me sicker." Denied inhaling it. Benign abdominal exam, and nause improved after Zofran; will continue to monitor. Plan/VTE VTE Prophylaxis Ordered?: Yes VS, I&O, 24H, Fishbone Vital Signs/I&O Vital Signs Date Time Temp Pulse Resp B/P (MAP) Pulse Ox O2 Delivery O2 Flow Rate FiO2 02/27/19 10:08 93 123/58 02/27/19 08:00 98.4 18 91 02/24/19 15:00 Nasal Cannula 1.0 I&O- Last 24 Hours up to 6 AM 02/27/19 06:00 Intake Total 1740 ml Output Total 1800 ml Balance -60 ml Laboratory Data 24H LABS Laboratory Tests 2 02/27/19 05:32: Nucleated Red Blood Cells % (auto) 0.0, Anion Gap 7L, Glomerular Filtration Rate 46.4, Blood Urea Nitrogen 15, Creatinine 1.17, Sodium Level 139, Potassium Level 4.1, Chloride Level 107, Carbon Dioxide Level 25, Calcium Level 8.2L CBC/BMP Laboratory Tests 02/27/19 05:32 Red Blood Count 2.91 L, Mean Corpuscular Volume 106.2 H, Mean Corpuscular Hemoglobin 32.0, Mean Corpuscular Hemoglobin Concent 30.1 L, Red Cell Distribution Width 14.6 H, Calcium Level 8.2 L Francis Javed MD Feb 27, 2019 11:35
[2019-02-27 12:00] VITALS: BP 131/58
[2019-02-27] MEDS: SLF 3 ML SYR IV SCH ×2 (14:00→21:46)
[2019-02-27 20:00] VITALS: BP 128/59
[2019-02-28 04:00] VITALS: BP 123/58
[2019-02-28 06:00] LABS: HEMATOCRIT 28.5 % (36.0-47.0); HEMOGLOBIN 9.1 g/dl (12.0-15.5); MEAN CORPUSCULAR HEMOGLOBIN 32.4 pg (27.0-33.0); MEAN CORPUSCULAR HGB CONC 31.9 g/dl (32.0-36.5); MEAN CORPUSCULAR VOLUME 101.4 fl (80.0-96.0); PLATELET COUNT, AUTOMATED 196 10^3/uL (150-450); RED BLOOD COUNT 2.81 10^6/uL (4.00-5.40); WHITE BLOOD COUNT 9.4 10^3/uL (4.0-10.0)
[2019-02-28] MEDS: SLF 3 ML SYR IV SCH ×3 (06:09→21:03)
[2019-02-28 06:32] LABS: CALCIUM LEVEL 8.5 MG/DL (8.8-10.2); CREATININE FOR GFR 1.25 MG/DL (0.55-1.30)
[2019-02-28] MEDS: SYMBICORT 160/4.5MCG INHALER 6GM INH SCH ×2 (07:28→20:26)
[2019-02-28 07:48] VITALS: BP 121/54
[2019-02-28] MEDS: GABAPENTIN 300 MG CAP PO SCH ×3 (08:03→21:03)
[2019-02-28] MEDS: sulfaSALAzine 500 MG TABEC PO SCH ×2 (08:03→21:03)
[2019-02-28] MEDS: OMEPRAZOLE 20 MG CAP PO SCH (08:03)
[2019-02-28] MEDS: HEPARIN SOD (PORCINE) 5000 UNITS/ML VIAL SQ SCH ×2 (08:03→21:02)
[2019-02-28] MEDS: MIRALAX *UNIT DOSE* 17GM PACKET PO PRN (08:03)
[2019-02-28] MEDS: ACETAMINOPHEN 500 MG TAB PO PRN (08:04)
[2019-02-28] MEDS: BISOPROLOL FUMARATE 5 MG TAB PO SCH (08:04)
[2019-02-28] MEDS: ASPIRIN 81 MG ENTERIC TAB PO SCH (08:04)
[2019-02-28] MEDS: LISINOPRIL 20 MG TAB PO SCH (08:05)
[2019-02-28] MEDS: FLUTICASONE PROP 0.05% NASAL SPRAY 16 GM (FLONASE) NARES SCH (08:06)
[2019-02-28] MEDS: TORSEMIDE 20 MG TAB PO SCH ×2 (08:08→16:59)
--- NOTE | 2019-02-28 10:54 | IPNPDOC ---
Subjective Date Seen The patient was seen on 02/28/19. Subjective Chief Complaint/HPI c/o cough and SOB overnight. Constitutional: Denies: Chills, Fever Pulmonary: Reports: Dyspnea, Cough Cardiovascular: Denies: Chest Pain, Palpitations Gastrointestinal: Denies: Nausea, Vomiting, Abdominal Pain, Diarrhea, Constipation Objective Physical Examination General Exam: Positive: Alert, Cooperative, No Acute Distress Eye Exam: Positive: Conjunctiva & lids normal ENT Exam: Positive: Mucous membr. moist/pink Chest Exam: Positive: Clear to auscultation, Normal air movement, Rales (Faint bibasilr rales on exam No wheezes or Rhonchi) Heart Exam: Positive: Rate Normal, Regular Rhythm; Negative: Bradycardic Abdomen Exam: Positive: Soft; Negative: Tenderness Extremity Exam: Positive: Edema (1+ edema BL) Skin Exam: Positive: Nl turgor and temperature; Negative: Rash Neuro Exam: Positive: Normal Speech Psych Exam: Positive: Memory Intact Assessment /Plan Problems (1) Diastolic CHF, acute on chronic Status: Acute Problem Text: We were increasing her Torsemide last week to address some decompensation CHF. Increased to 40 mg BID Has signs of acute on chronic diastolic CHF currently with some rales, edema and elevated BNP Increase Torsemide to 40 mg am/20 mg pm - Monitor electrolytes and BP. (Was hypo tensive on admission on Torsemide 40 BID and Lisinopril) Get updated Echo (Last one done in early 2018) - Has been requiring gradually increasing doses of Torsemide recently so updated Echo would be valuable Follows with Dr. Guzman as outpatient (2) Asthma Status: Chronic Problem Text: Cont Symbicort and Albuterol nebs (3) Accidental overdose Status: Acute Problem Text: Discussed with daughter the need for patient to not set out her own medications upon discharge. Daughter states that she can set them out a week at time, if patient is discharged to home. (4) Physical deconditioning Problem Text: PT consulted, patient is not deemed safe for discharge at this time. May require AL or SNF upon DC, will see how she progresses. (5) Bradycardia Status: Resolved Problem Text: Secondary to medication overdose. Now resolved. (6) Hypotension Status: Resolved Problem Text: Hypotension now resolved, and patient is back on home bisoprolol and Lasix. (7) Vomiting Status: Resolved Problem Text: 02/27: no emesis today. She admits to an episode of vomiting this morning. When asked, denies bloody or coffee ground emesis. She did state that she "swallowed it really quickly, and it made me sicker." Denied inhaling it. Benign abdominal exam, and nause improved after Zofran; will continue to monitor. Plan/VTE VTE Prophylaxis Ordered?: Yes Plan Therapy: PT Disposition PFS involved in disposition planning - Will likely need AL VS, I&O, 24H, Fishbone Vital Signs/I&O Vital Signs Date Time Temp Pulse Resp B/P (MAP) Pulse Ox O2 Delivery O2 Flow Rate FiO2 02/28/19 08:05 128/66 02/28/19 08:04 85 02/28/19 07:48 98.3 20 90 02/24/19 15:00 Nasal Cannula 1.0 I&O- Last 24 Hours up to 6 AM 02/28/19 06:00 Intake Total 1100 ml Output Total 1400 ml Balance -300 ml Laboratory Data 24H LABS Laboratory Tests 2 02/27/19 22:23: Urine Color STRAW, Urine Appearance CLEAR, Urine pH 5.0, Urine Specific [place] 1.005, Urine Protein NEGATIVE, Urine Glucose (UA) NEGATIVE, Urine Ketones NEGATIVE, Urine Blood NEGATIVE, Urine Nitrite NEGATIVE, Urine Bilirubin NEGATIVE, Urine Urobilinogen 0.2, Urine Leukocyte Esterase 1+H, Urine WBC (Auto) 37H, Urine RBC (Auto) 3, Urine Hyaline Casts (Auto) 1, Urine Bacteria (Auto) 2+H, Urine Squamous Epithelial Cells 0, Urine Mucus (Auto) SMALL, Urine Sperm (Auto) 02/28/19 05:30: Nucleated Red Blood Cells % (auto) 0.0, Anion Gap 8, Glomerular Filtration Rate 43.0, Blood Urea Nitrogen 20H, Creatinine 1.25, Sodium Level 139, Potassium Level 4.0, Chloride Level 104, Carbon Dioxide Level 27, Calcium Level 8.5L, AT-Vcf-I-Type Natriuretic Peptide 2649H CBC/BMP Laboratory Tests 02/28/19 05:30 Red Blood Count 2.81 L, Mean Corpuscular Volume 101.4 H, Mean Corpuscular Hemoglobin 32.4, Mean Corpuscular Hemoglobin Concent 31.9 L, Red Cell Distribution Width 14.4, Calcium Level 8.5 L Microbiology Microbiology 02/27/19 Urine Culture, Received Pending Attending Note Attending Note Rales are a little less prominent today than yesterday. PHILLIP GILL PA-C Feb 28, 2019 10:54 Francis Javed MD Feb 28, 2019 10:56
[2019-02-28 16:37] VITALS: BP 131/60
[2019-02-28 18:10] VITALS: BP 140/64
--- NOTE | 2019-02-28 19:21 | ECHO ---
DATE OF PROCEDURE: 02/28/2019 Date of : 1930 Age: 88 Gender: Female Height: 59 inches Weight: 189 pounds Body surface area: 1.8 meters squared Inpatient: Progressive care unit (PCU), room 3222 REFERRING PHYSICIAN: CLAUDIA Hayden INDICATION: Congestive heart failure (CHF). MEASUREMENTS: 2D Measurements: RV: 3.2 cm LV: 4.6 cm Septum: 1.2 cm Posterior wall: 1.2 cm Aortic root: 3.3 cm LA: 4.4 cm LVEF: 75% Doppler Measurements: AV: 1.5 meters per second LVOT: 1.1 meters per second LVOT diameter: 2.0 cm MV-E: 127, A: 128, EA ratio: 1 Early mitral deceleration time: 270 milliseconds E prime: 5, A prime: 5.9, E/E prime ratio: 25 Pulmonary capillary wedge pressure: 31 mmHg PV: 0.8 meters per second Pulmonary artery acceleration time: 100 milliseconds RVSP: 46 mmHg IVC: 1.7 cm COMMENTS: Normal sinus rhythm with right bundle branch block. M-mode and two-dimensional echocardiography was performed with pulsed, continuous wave, color flow and tissue Doppler studies. Borderline concentric left ventricular hypertrophy with hyperkinetic wall motion. Mildly dilated left atrium with impairment of left ventricular (LV) diastolic function and significantly elevated estimated mean left atrial pressure. Normal right heart chamber sizes and motion with Doppler evidence of moderate pulmonary hypertension. Normal inferior vena cava (IVC) size and collapse against an elevated central venous pressure at this time. Normal appearing aortic valve and function. Normal aortic diameters. Moderately severe mitral annular calcification without inflow tract obstruction and only very mild mitral insufficiency. Normal appearing tricuspid valve with mild insufficiency. No apparent intracardiac mass or pericardial effusion.
[2019-02-28 22:00] VITALS: BP 134/70
[2019-03-01] MEDS: LEVOTHYROXINE 75MCG TABLET (0.075MG) PO SCH (05:32)
[2019-03-01] MEDS: SLF 3 ML SYR IV SCH ×3 (05:32→20:27)
[2019-03-01 06:00] VITALS: BP 126/72
[2019-03-01 06:37] LABS: HEMATOCRIT 28.9 % (36.0-47.0); HEMOGLOBIN 9.2 g/dl (12.0-15.5); MEAN CORPUSCULAR HEMOGLOBIN 31.5 pg (27.0-33.0); MEAN CORPUSCULAR HGB CONC 31.8 g/dl (32.0-36.5); PLATELET COUNT, AUTOMATED 209 10^3/uL (150-450); RED BLOOD COUNT 2.92 10^6/uL (4.00-5.40); WHITE BLOOD COUNT 7.4 10^3/uL (4.0-10.0)
[2019-03-01 06:57] LABS: CALCIUM LEVEL 8.7 MG/DL (8.8-10.2); CREATININE FOR GFR 1.12 MG/DL (0.55-1.30); GLOMERULAR FILTRATION RATE 48.8 (>32); POTASSIUM SERUM 3.9 MEQ/L (3.5-5.1)
[2019-03-01] MEDS: SYMBICORT 160/4.5MCG INHALER 6GM INH SCH ×2 (07:27→20:36)
[2019-03-01] MEDS: ASPIRIN 81 MG ENTERIC TAB PO SCH (10:15)
[2019-03-01] MEDS: BISOPROLOL FUMARATE 5 MG TAB PO SCH (10:15)
[2019-03-01] MEDS: TORSEMIDE 20 MG TAB PO SCH ×2 (10:15→17:35)
[2019-03-01] MEDS: LISINOPRIL 20 MG TAB PO SCH (10:15)
[2019-03-01] MEDS: OMEPRAZOLE 20 MG CAP PO SCH (10:15)
[2019-03-01] MEDS: GABAPENTIN 300 MG CAP PO SCH ×3 (10:15→20:26)
[2019-03-01] MEDS: HEPARIN SOD (PORCINE) 5000 UNITS/ML VIAL SQ SCH ×2 (10:16→20:26)
[2019-03-01] MEDS: FLUTICASONE PROP 0.05% NASAL SPRAY 16 GM (FLONASE) NARES SCH (10:19)
--- NOTE | 2019-03-01 11:00 | IPNPDOC ---
Subjective Date Seen The patient was seen on 03/01/19. Subjective Chief Complaint/HPI bradycardia Events since last encounter Participating in PT. DC plans being managed with PFS and nursing. Home vs AL. Increased dosing started with Torsemide yesterday due to poorly compensated CHF. Constitutional: Denies: Chills, Fever, Night Sweats Pulmonary: Denies: Dyspnea, Cough Cardiovascular: Denies: Chest Pain, Palpitations, Orthopnea, Paroxysmal Noc. Dyspnea, Lt Headedness Gastrointestinal: Denies: Nausea, Vomiting, Abdominal Pain, Diarrhea, Constipation Genitourinary: Denies: Dysuria, Frequency, Incontinence, Retention Psych: Reports: Mood Normal, Anxiety (regarding DC plans); Denies: Depression, Memory Issues Objective Physical Examination General Exam: Positive: Alert, Cooperative, No Acute Distress Eye Exam: Positive: Conjunctiva & lids normal ENT Exam: Positive: Mucous membr. moist/pink Chest Exam: Positive: Clear to auscultation, Normal air movement, Rales (LLL) Heart Exam: Positive: Rate Normal, Regular Rhythm; Negative: Bradycardic Abdomen Exam: Positive: Soft; Negative: Tenderness Extremity Exam: Positive: Edema (1+ edema BL) Skin Exam: Positive: Nl turgor and temperature; Negative: Rash Neuro Exam: Positive: Normal Speech Psych Exam: Positive: Memory Intact Assessment /Plan Problems (1) Diastolic CHF, acute on chronic Status: Acute Problem Text: 03/01/19: I/O ordered with recent increased in diuretic dosing. monitor renal function, labs ordered. Echo pending We were increasing her Torsemide last week to address some decompensation CHF. Increased to 40 mg BID Has signs of acute on chronic diastolic CHF currently with some rales, edema and elevated BNP Increase Torsemide to 40 mg am/20 mg pm - Monitor electrolytes and BP. (Was hypotensive on admission on Torsemide 40 BID and Lisinopril) Get updated Echo (Last one done in early 2018) - Has been requiring gradually increasing doses of Torsemide recently so updated Echo would be valuable Follows with Dr. Guzman as outpatient (2) Asthma Status: Chronic Problem Text: Cont Symbicort and Albuterol nebs (3) Accidental overdose Status: Acute Problem Text: Discussed with daughter the need for patient to not set out her own medications upon discharge. Daughter states that she can set them out a week at time, if patient is discharged to home. (4) Physical deconditioning Problem Text: PT consulted, patient is not deemed safe for discharge at this time. May require AL or SNF upon DC, will see how she progresses. (5) Bradycardia Status: Resolved Problem Text: Secondary to medication overdose. Now resolved. (6) Hypotension Status: Resolved Problem Text: Hypotension now resolved, and patient is back on home bisoprolol and Lasix. (7) Vomiting Status: Resolved Problem Text: 02/27: no emesis today. She admits to an episode of vomiting this morning. When asked, denies bloody or coffee ground emesis. She did state that she "swallowed it really quickly, and it made me sicker." Denied inhaling it. Benign abdominal exam, and nause improved after Zofran; will continue to monitor. Plan/VTE VTE Prophylaxis Ordered?: Yes Plan Therapy: PT VS, I&O, 24H, Fishbone Vital Signs/I&O Vital Signs Date Time Temp Pulse Resp B/P (MAP) Pulse Ox O2 Delivery O2 Flow Rate FiO2 03/01/19 10:15 126/72 03/01/19 10:15 72 03/01/19 06:00 98.3 15 96 02/24/19 15:00 Nasal Cannula 1.0 I&O- Last 24 Hours up to 6 AM 03/01/19 06:00 Intake Total 1110 ml Output Total 600 ml Balance 510 ml Laboratory Data 24H LABS Laboratory Tests 2 03/01/19 05:24: Nucleated Red Blood Cells % (auto) 0.0, Anion Gap 9, Glomerular Filtration Rate 48.8, Blood Urea Nitrogen 18, Creatinine 1.12, Sodium Level 139, Potassium Level 3.9, Chloride Level 101, Carbon Dioxide Level 29, Calcium Level 8.7L CBC/BMP Laboratory Tests 03/01/19 05:24 Red Blood Count 2.92 L, Mean Corpuscular Volume 99.0 H, Mean Corpuscular Hemoglobin 31.5, Mean Corpuscular Hemoglobin Concent 31.8 L, Red Cell Distribution Width 14.4, Calcium Level 8.7 L Microbiology Microbiology 02/27/19 Urine Culture, Received Pending Regine CanalesP Mar 01, 2019 11:00
[2019-03-01] MEDS: sulfaSALAzine 500 MG TABEC PO SCH ×2 (13:15→20:26)
[2019-03-01] MEDS: MIRALAX *UNIT DOSE* 17GM PACKET PO PRN (13:15)
[2019-03-01] MEDS: POLYVINYL ALCOHOL OPHTH SOLN 15 ML(LIQUITEARS) OU SCH ×3 (13:15→20:27)
[2019-03-01 14:00] VITALS: BP 113/54
[2019-03-01] MEDS: ACETAMINOPHEN 500 MG TAB PO PRN (20:31)
[2019-03-01 22:00] VITALS: BP 120/60
[2019-03-02 05:56] LABS: HEMATOCRIT 28.5 % (36.0-47.0); MEAN CORPUSCULAR HEMOGLOBIN 31.4 pg (27.0-33.0); MEAN CORPUSCULAR HGB CONC 31.6 g/dl (32.0-36.5); MEAN CORPUSCULAR VOLUME 99.3 fl (80.0-96.0); PLATELET COUNT, AUTOMATED 227 10^3/uL (150-450); RED BLOOD COUNT 2.87 10^6/uL (4.00-5.40); WHITE BLOOD COUNT 6.7 10^3/uL (4.0-10.0)
[2019-03-02 06:00] VITALS: BP 136/60
[2019-03-02 06:19] LABS: CALCIUM LEVEL 8.6 MG/DL (8.8-10.2); CREATININE FOR GFR 1.26 MG/DL (0.55-1.30); GLOMERULAR FILTRATION RATE 42.6 (>32); POTASSIUM SERUM 3.6 MEQ/L (3.5-5.1)
[2019-03-02] MEDS: SLF 3 ML SYR IV SCH ×3 (06:40→23:02)
[2019-03-02] MEDS: LISINOPRIL 20 MG TAB PO SCH (09:00)
[2019-03-02] MEDS: sulfaSALAzine 500 MG TABEC PO SCH ×2 (09:00→23:01)
[2019-03-02] MEDS: TORSEMIDE 20 MG TAB PO SCH ×2 (09:01→16:17)
[2019-03-02] MEDS: HEPARIN SOD (PORCINE) 5000 UNITS/ML VIAL SQ SCH ×2 (09:01→23:02)
[2019-03-02] MEDS: BISOPROLOL FUMARATE 5 MG TAB PO SCH (09:01)
[2019-03-02] MEDS: ASPIRIN 81 MG ENTERIC TAB PO SCH (09:01)
[2019-03-02] MEDS: OMEPRAZOLE 20 MG CAP PO SCH ×2 (09:01→23:01)
[2019-03-02] MEDS: GABAPENTIN 300 MG CAP PO SCH ×3 (09:01→23:01)
[2019-03-02] MEDS: POLYVINYL ALCOHOL OPHTH SOLN 15 ML(LIQUITEARS) OU SCH ×4 (09:02→23:02)
[2019-03-02] MEDS: FLUTICASONE PROP 0.05% NASAL SPRAY 16 GM (FLONASE) NARES SCH (09:02)
[2019-03-02] MEDS: SYMBICORT 160/4.5MCG INHALER 6GM INH SCH ×2 (09:05→20:55)
--- NOTE | 2019-03-02 12:03 | IPNPDOC ---
Subjective Date Seen The patient was seen on 03/02/19. Subjective Chief Complaint/HPI Pt this morning states that she is doing alright. She has no concerns. General: Denies: Fatigue Constitutional: Denies: Chills, Fever Pulmonary: Denies: Dyspnea, Cough Cardiovascular: Denies: Chest Pain, Palpitations Gastrointestinal: Denies: Nausea, Vomiting, Diarrhea Psych: Reports: Mood Normal Objective Physical Examination General Exam: Positive: Alert, Cooperative, No Acute Distress Eye Exam: Positive: Conjunctiva & lids normal ENT Exam: Positive: Mucous membr. moist/pink Chest Exam: Positive: Clear to auscultation, Normal air movement; Negative: Rales Heart Exam: Positive: Rate Normal, Regular Rhythm; Negative: Bradycardic Abdomen Exam: Positive: Soft; Negative: Tenderness Extremity Exam: Positive: Edema (1+ edema BL) Skin Exam: Positive: Nl turgor and temperature; Negative: Rash Neuro Exam: Positive: Normal Speech Psych Exam: Positive: Memory Intact Assessment /Plan Problems (1) Diastolic CHF, acute on chronic Status: Acute Problem Text: 03/02 Neg net 130 cc yesterday. ECHO with hyperkinectic LV motion, diastolic impairment. 03/01/19: I/O ordered with recent increased in diuretic dosing. monitor renal function, labs ordered. Echo pending We were increasing her Torsemide last week to address some decompensation CHF. Increased to 40 mg BID Has signs of acute on chronic diastolic CHF currently with some rales, edema and elevated BNP Increase Torsemide to 40 mg am/20 mg pm - Monitor electrolytes and BP. (Was hypotensive on admission on Torsemide 40 BID and Lisinopril) Get updated Echo (Last one done in early 2018) - Has been requiring gradually increasing doses of Torsemide recently so updated Echo would be valuable Follows with Dr. Guzman as outpatient (2) Asthma Status: Chronic Problem Text: Cont Symbicort and Albuterol nebs (3) Accidental overdose Status: Acute Problem Text: Discussed with daughter the need for patient to not set out her own medications upon discharge. Daughter states that she can set them out a week at time, if patient is discharged to home. (4) Physical deconditioning Problem Text: PT consulted, patient is not deemed safe for discharge at this time. May require AL or SNF upon DC, will see how she progresses. (5) Bradycardia Status: Resolved Problem Text: Secondary to medication overdose. Now resolved. (6) Hypotension Status: Resolved Problem Text: Hypotension now resolved, and patient is back on home bisoprolol and Lasix. (7) Vomiting Status: Resolved Problem Text: 02/27: no emesis today. She admits to an episode of vomiting this morning. When asked, denies bloody or coffee ground emesis. She did state that she "swallowed it really quickly, and it made me sicker." Denied inhaling it. Benign abdominal exam, and nause improved after Zofran; will continue to monitor. Plan/VTE VTE Prophylaxis Ordered?: Yes Plan Therapy: PT VS, I&O, 24H, Fishbone Vital Signs/I&O Vital Signs Date Time Temp Pulse Resp B/P (MAP) Pulse Ox O2 Delivery O2 Flow Rate FiO2 03/02/19 09:01 72 136/60 03/02/19 06:00 97.5 16 96 02/24/19 15:00 Nasal Cannula 1.0 I&O- Last 24 Hours up to 6 AM 03/02/19 06:00 Intake Total 840 ml Output Total 1550 ml Balance -710 ml Laboratory Data 24H LABS Laboratory Tests 2 03/02/19 05:20: Nucleated Red Blood Cells % (auto) 0.0, Anion Gap 6L, Glomerular Filtration Rate 42.6, Blood Urea Nitrogen 20H, Creatinine 1.26, Sodium Level 138, Potassium [place] 3.6, Chloride Level 102, Carbon Dioxide Level 30, Calcium Level 8.6L CBC/BMP Laboratory Tests 03/02/19 05:20 Red Blood Count 2.87 L, Mean Corpuscular Volume 99.3 H, Mean Corpuscular Hemoglobin 31.4, Mean Corpuscular Hemoglobin Concent 31.6 L, Red Cell Distribution Width 14.3, Calcium Level 8.6 L Microbiology Microbiology 02/27/19 Urine Culture - Final, Complete Klebsiella Oxytoca NOEMY STRICKLAND PA-C Mar 02, 2019 12:03
[2019-03-02 14:00] VITALS: BP 104/51
[2019-03-02] MEDS: CEFDINIR 300 MG CAP (OMNICEF) PO SCH (14:26)
[2019-03-02] MEDS: ONDANSETRON 4MG/2ML VIAL (J2405) IV PRN (16:17)
[2019-03-02 22:00] VITALS: BP 118/62
[2019-03-03] MEDS: ONDANSETRON 4MG/2ML VIAL (J2405) IV PRN (01:52)
[2019-03-03] MEDS: ACETAMINOPHEN 500 MG TAB PO PRN ×2 (02:42→14:39)
[2019-03-03 05:59] LABS: HEMATOCRIT 32.5 % (36.0-47.0); HEMOGLOBIN 10.2 g/dl (12.0-15.5); MEAN CORPUSCULAR HEMOGLOBIN 31.9 pg (27.0-33.0); MEAN CORPUSCULAR HGB CONC 31.4 g/dl (32.0-36.5); MEAN CORPUSCULAR VOLUME 101.6 fl (80.0-96.0); PLATELET COUNT, AUTOMATED 273 10^3/uL (150-450); WHITE BLOOD COUNT 10.4 10^3/uL (4.0-10.0)
[2019-03-03 06:00] VITALS: BP 130/60
[2019-03-03] MEDS: SLF 3 ML SYR IV SCH ×3 (06:09→20:36)
[2019-03-03] MEDS: LEVOTHYROXINE 75MCG TABLET (0.075MG) PO SCH (06:09)
[2019-03-03 06:24] LABS: CALCIUM LEVEL 8.3 MG/DL (8.8-10.2); CREATININE FOR GFR 2.01 MG/DL (0.55-1.30); GLOMERULAR FILTRATION RATE 24.8 (>32)
[2019-03-03] MEDS: SYMBICORT 160/4.5MCG INHALER 6GM INH SCH ×2 (08:14→19:55)
[2019-03-03] MEDS: GABAPENTIN 300 MG CAP PO SCH ×3 (08:49→20:35)
[2019-03-03] MEDS: HEPARIN SOD (PORCINE) 5000 UNITS/ML VIAL SQ SCH ×2 (08:49→20:36)
[2019-03-03] MEDS: BISOPROLOL FUMARATE 5 MG TAB PO SCH (08:49)
[2019-03-03] MEDS: OMEPRAZOLE 20 MG CAP PO SCH ×2 (08:49→20:36)
[2019-03-03] MEDS: CEFDINIR 300 MG CAP (OMNICEF) PO SCH (08:50)
[2019-03-03] MEDS: FLUTICASONE PROP 0.05% NASAL SPRAY 16 GM (FLONASE) NARES SCH (08:50)
[2019-03-03] MEDS: POLYVINYL ALCOHOL OPHTH SOLN 15 ML(LIQUITEARS) OU SCH ×4 (08:50→20:36)
[2019-03-03] MEDS: ASPIRIN 81 MG ENTERIC TAB PO SCH (08:50)
[2019-03-03] MEDS: sulfaSALAzine 500 MG TABEC PO SCH ×2 (08:50→20:36)
[2019-03-03] MEDS: LISINOPRIL 20 MG TAB PO SCH (08:50)
--- NOTE | 2019-03-03 11:38 | IPNPDOC ---
Subjective Date Seen The patient was seen on 03/03/19. Subjective Chief Complaint/HPI Pt this morning states that she had nausea with one episode of vomiting overnight, she also reports a stool that was a bit on the loose side. She states that she ate breakfast this morning and tolerated this well. General: Reports: Fatigue Constitutional: Denies: Chills, Fever ENT: Denies: Head Aches Pulmonary: Denies: Dyspnea, Cough Cardiovascular: Denies: Chest Pain, Palpitations Gastrointestinal: Reports: Diarrhea; Denies: Nausea, Vomiting, Abdominal Pain Neurological: Reports: Weakness Psych: Reports: Mood Normal Objective Physical Examination General Exam: Positive: Alert, Cooperative, No Acute Distress ENT Exam: Positive: Mucous membr. moist/pink Chest Exam: Positive: Clear to auscultation, Normal air movement; Negative: Rales Heart Exam: Positive: Rate Normal, Regular Rhythm; Negative: Bradycardic Abdomen Exam: Positive: Normal bowel sounds, Soft; Negative: Tenderness Extremity Exam: Negative: Edema Skin Exam: Positive: Nl turgor and temperature; Negative: Rash Neuro Exam: Positive: Normal Speech Psych Exam: Positive: Memory Intact Assessment /Plan Problems (1) Diastolic CHF, acute on chronic Status: Acute Problem Text: 03/03 morning torsemide dose held d/t elevated scr at 2.0, appears compensated. 03/02 Neg net 130 cc yesterday. ECHO with hyperkinectic LV motion, diastolic impairment. 03/01/19: I/O ordered with recent increased in diuretic dosing. monitor renal function, labs ordered. Echo pending We were increasing her Torsemide last week to address some decompensation CHF. Increased to 40 mg BID Has signs of acute on chronic diastolic CHF currently with some rales, edema and elevated BNP Increase Torsemide to 40 mg am/20 mg pm - Monitor electrolytes and BP. (Was hypotensive on admission on Torsemide 40 BID and Lisinopril) Get updated Echo (Last one done in early 2018) - Has been requiring gradually increasing doses of Torsemide recently so updated Echo would be valuable Follows with Dr. Guzman as outpatient (2) Asthma Status: Chronic Problem Text: Cont Symbicort and Albuterol nebs (3) Accidental overdose Status: Acute Problem Text: Discussed with daughter the need for patient to not set out her own medications upon discharge. Daughter states that she can set them out a week at time, if patient is discharged to home. (4) Physical deconditioning Problem Text: PT consulted, patient is not deemed safe for discharge at this time. May require AL or SNF upon DC, will see how she progresses. (5) Bradycardia Status: Resolved Problem Text: Secondary to medication overdose. Now resolved. (6) Hypotension Status: Resolved Problem Text: Hypotension now resolved, and patient is back on home bisoprolol and Lasix. (7) Vomiting Status: Resolved Problem Text: 02/27: no emesis today. She admits to an episode of vomiting this morning. When asked, denies bloody or coffee ground emesis. She did state that she "swallowed it really quickly, and it made me sicker." Denied inhaling it. Benign abdominal exam, and nause i mproved after Zofran; will continue to monitor. Plan/VTE VTE Prophylaxis Ordered?: Yes Plan Therapy: PT VS, I&O, 24H, Fishbone Vital Signs/I&O Vital Signs Date Time Temp Pulse Resp B/P (MAP) Pulse Ox O2 Delivery O2 Flow Rate FiO2 03/03/19 08:50 130/60 03/03/19 08:49 73 03/03/19 06:00 96.8 18 90 I&O- Last 24 Hours up to 6 AM 03/03/19 06:00 Intake Total 1220 ml Output Total 1300 ml Balance -80 ml Laboratory Data 24H LABS Laboratory Tests 2 03/03/19 05:24: Nucleated Red Blood Cells % (auto) 0.0, Anion Gap 8, Glomerular Filtration Rate 24.8L, Blood Urea Nitrogen 27H, Creatinine 2.01#H, Sodium Level 136, Potassium Level 4.0, Chloride Level 100, Carbon Dioxide Level 28, Calcium Level 8.3L, Lipase 37L CBC/BMP Laboratory Tests 03/03/19 05:24 Red Blood Count 3.20 L, Mean Corpuscular Volume 101.6 H, Mean Corpuscular He moglobin 31.9, Mean Corpuscular Hemoglobin Concent 31.4 L, Red Cell Distribution Width 14.5, Calcium Level 8.3 L Microbiology Microbiology 02/27/19 Urine Culture - Final, Complete Klebsiella Oxytoca NOEMY STRICKLAND PA-C Mar 03, 2019 11:38
[2019-03-03 14:00] VITALS: BP 127/57
[2019-03-03] MEDS: ALBUTEROL SULFATE 2.5 MG/0.5 ML INH NEB SOLN INH PRN ×2 (15:32→21:12)
[2019-03-03 22:00] VITALS: BP 116/52
[2019-03-04 06:00] VITALS: BP 116/56
[2019-03-04] MEDS: SLF 3 ML SYR IV SCH ×3 (06:00→20:10)
[2019-03-04 06:41] LABS: ALBUMIN 2.6 GM/DL (3.2-5.2); CALCIUM LEVEL 8.2 MG/DL (8.8-10.2); CREATININE FOR GFR 1.9 MG/DL (0.55-1.30); GLOMERULAR FILTRATION RATE 26.5 (>32); PHOSPHORUS LEVEL 4.9 MG/DL (2.5-4.9); POTASSIUM SERUM 3.7 MEQ/L (3.5-5.1)
[2019-03-04] MEDS: SYMBICORT 160/4.5MCG INHALER 6GM INH SCH ×2 (07:29→20:17)
[2019-03-04] MEDS: HEPARIN SOD (PORCINE) 5000 UNITS/ML VIAL SQ SCH ×2 (08:59→20:17)
[2019-03-04] MEDS: CEFDINIR 300 MG CAP (OMNICEF) PO SCH (09:02)
[2019-03-04] MEDS: OMEPRAZOLE 20 MG CAP PO SCH ×2 (09:02→20:15)
[2019-03-04] MEDS: GABAPENTIN 300 MG CAP PO SCH ×3 (09:02→20:15)
[2019-03-04] MEDS: POLYVINYL ALCOHOL OPHTH SOLN 15 ML(LIQUITEARS) OU SCH ×4 (09:03→20:17)
[2019-03-04] MEDS: ASPIRIN 81 MG ENTERIC TAB PO SCH (09:03)
[2019-03-04] MEDS: FLUTICASONE PROP 0.05% NASAL SPRAY 16 GM (FLONASE) NARES SCH (09:03)
[2019-03-04] MEDS: BISOPROLOL FUMARATE 5 MG TAB PO SCH (09:03)
[2019-03-04] MEDS: sulfaSALAzine 500 MG TABEC PO SCH ×3 (09:04→20:17)
[2019-03-04 14:00] VITALS: BP 129/62
[2019-03-04] MEDS: ACETAMINOPHEN 500 MG TAB PO PRN (14:39)
--- NOTE | 2019-03-04 17:07 | IPNPDOC ---
Subjective Date Seen The patient was seen on 03/04/19. Objective Physical Examination General Exam: Positive: Alert, Cooperative, No Acute Distress ENT Exam: Positive: Mucous membr. moist/pink Chest Exam: Positive: Clear to auscultation, Normal air movement; Negative: Rales Heart Exam: Positive: Rate Normal, Regular Rhythm; Negative: Bradycardic Abdomen Exam: Positive: Normal bowel sounds, Soft; Negative: Tenderness Extremity Exam: Negative: Edema Skin Exam: Positive: Nl turgor and temperature; Negative: Rash Neuro Exam: Positive: Normal Speech Psych Exam: Positive: Memory Intact Assessment /Plan Problems (1) Diastolic CHF, acute on chronic Status: Acute Problem Text: 03/03 morning torsemide dose held d/t elevated scr at 2.0, appears compensated. 03/02 Neg net 130 cc yesterday. ECHO with hyperkinectic LV motion, diastolic impairment. 03/01/19: I/O ordered with recent increased in diuretic dosing. monitor renal function, labs ordered. Echo pending We were increasing her Torsemide last week to address some decompensation CHF. Increased to 40 mg BID Has signs of acute on chronic diastolic CHF currently with some rales, edema and elevated BNP Increase Torsemide to 40 mg am/20 mg pm - Monitor electrolytes and BP. (Was hypotensive on admission on Torsemide 40 BID and Lisinopril) Get updated Echo (Last one done in early 2018) - Has been requiring gradually increasing doses of Torsemide recently so updated Echo would be valuable Follows with Dr. Guzman as outpatient (2) Asthma Status: Chronic Problem Text: Cont Symbicort and Albuterol nebs (3) Accidental overdose Status: Acute Problem Text: Discussed with daughter the need for patient to not set out her own medications upon discharge. Daughter states that she can set them out a week at time, if patient is discharged to home. (4) Physical deconditioning Problem Text: PT consulted, patient is not deemed safe for discharge at this time. May require AL or SNF upon DC, will see how she progresses. (5) Bradycardia Status: Resolved Problem Text: Secondary to medication overdose. Now resolved. (6) Hypotension Status: Resolved Problem Text: Hypotension now resolved, and patient is back on home bisoprolol and Lasix. (7) Vomiting Status: Resolved Problem Text: 02/27: no emesis today. She admits to an episode of vomiting this morning. When asked, denies bloody or coffee ground emesis. She did state that she "swallowed it really quickly, and it made me sicker." Denied inhaling it. Benign abdominal exam, and nause improved after Zofran; will continue to monitor. Plan/VTE VTE Prophylaxis Ordered?: Yes Plan Therapy: PT VS, I&O, 24H, Fishbone Vital Signs/I&O Vital Signs Date Time Temp Pulse Resp B/P (MAP) Pulse Ox O2 Delivery O2 Flow Rate FiO2 03/04/19 14:00 97.1 66 18 129/62 (84) 96 I&O- Last 24 Hours up to 6 AM 03/04/19 06:00 Intake Total 1050 ml Output Total 300 ml Balance 750 ml Laboratory Data 24H LABS Laboratory Tests 2 03/04/19 05:48: Blood Urea Nitrogen 33H, Creatinine 1.90H, Sodium Level 134L, Potassium Level 3.7, Chloride Level 99, Carbon Dioxide Level 28, Anion Gap 7L, Glomerular Filtration Rate 26.5L, Calcium Level 8.2L, Phosphorus Level 4.9, Albumin 2.6L CBC/BMP Laboratory Tests 03/04/19 05:48 Anion Gap 7 L Microbiology Microbiology 02/27/19 Urine Culture - Final, Complete Klebsiella Oxytoca Ramirez Child MD Mar 04, 2019 17:07
[2019-03-04] MEDS: TORSEMIDE 10 MG TABLET PO SCH (17:50)
[2019-03-04 22:00] VITALS: BP 134/63
[2019-03-05] MEDS: ALBUTEROL SULFATE 2.5 MG/0.5 ML INH NEB SOLN INH PRN (04:15)
[2019-03-05] MEDS: SLF 3 ML SYR IV SCH (05:34)
[2019-03-05] MEDS: LEVOTHYROXINE 75MCG TABLET (0.075MG) PO SCH (05:41)
[2019-03-05 06:00] VITALS: BP 126/57
[2019-03-05 06:12] LABS: HEMATOCRIT 29.4 % (36.0-47.0); HEMOGLOBIN 9.3 g/dl (12.0-15.5); MEAN CORPUSCULAR HEMOGLOBIN 32.1 pg (27.0-33.0); MEAN CORPUSCULAR HGB CONC 31.6 g/dl (32.0-36.5); MEAN CORPUSCULAR VOLUME 101.4 fl (80.0-96.0); PLATELET COUNT, AUTOMATED 241 10^3/uL (150-450); WHITE BLOOD COUNT 7.4 10^3/uL (4.0-10.0)
[2019-03-05 06:43] LABS: ALBUMIN 2.8 GM/DL (3.2-5.2); CALCIUM LEVEL 8.3 MG/DL (8.8-10.2); CREATININE FOR GFR 1.31 MG/DL (0.55-1.30); GLOMERULAR FILTRATION RATE 40.7 (>32); PHOSPHORUS LEVEL 3.5 MG/DL (2.5-4.9); POTASSIUM SERUM 3.5 MEQ/L (3.5-5.1)
[2019-03-05] MEDS: ACETAMINOPHEN 500 MG TAB PO PRN (06:56)
[2019-03-05] MEDS: SYMBICORT 160/4.5MCG INHALER 6GM INH SCH (07:16)
[2019-03-05] MEDS: sulfaSALAzine 500 MG TABEC PO SCH (08:18)
[2019-03-05] MEDS: GABAPENTIN 300 MG CAP PO SCH (08:18)
[2019-03-05] MEDS: ASPIRIN 81 MG ENTERIC TAB PO SCH (08:18)
[2019-03-05] MEDS: TORSEMIDE 10 MG TABLET PO SCH (08:19)
[2019-03-05] MEDS: CEFDINIR 300 MG CAP (OMNICEF) PO SCH (08:19)
[2019-03-05] MEDS: OMEPRAZOLE 20 MG CAP PO SCH (08:19)
[2019-03-05 08:20] VITALS: BP 128/62
[2019-03-05] MEDS: POLYVINYL ALCOHOL OPHTH SOLN 15 ML(LIQUITEARS) OU SCH (08:20)
[2019-03-05] MEDS: FLUTICASONE PROP 0.05% NASAL SPRAY 16 GM (FLONASE) NARES SCH (08:20)
[2019-03-05] MEDS: BISOPROLOL FUMARATE 5 MG TAB PO SCH (08:20)
[2019-03-05] MEDS: HEPARIN SOD (PORCINE) 5000 UNITS/ML VIAL SQ SCH (08:20)
[2019-03-05] MEDS ORDERED: TORS10TA3 PO (12:25)
--- NOTE | 2019-03-05 12:26 | DS.PDOC ---
Discharge Summary General Date of Admission Feb 27, 2019 at 11:35 Date of Discharge 03/05/19 Primary Care Physician: Watson Amin MD Attending Physician: Ramirez Child MD Discharge Summary PROCEDURES PERFORMED DURING STAY: [None]. ADMITTING DIAGNOSES: 1. . DISCHARGE DIAGNOSES: 1. . COMPLICATIONS/CHIEF COMPLAINT: Bradycardia. HISTORY OF PRESENT ILLNESS: . HOSPITAL COURSE: . DISCHARGE MEDICATIONS: Please see below. ALLERGIES: Please see below. PHYSICAL EXAMINATION ON DISCHARGE: VITAL SIGNS: Please see below. GENERAL: HEENT: NECK: CARDIOVASCULAR EXAMINATION: RESPIRATORY EXAMINATION: ABDOMINAL EXAMINATION: EXTREMITIES: SKIN: NEUROLOGICAL EXAMINATION: PSYCHIATRIC EXAMINATION: LABORATORY DATA: Please see below. IMAGING: PROGNOSIS: ACTIVITY: [As tolerated]. DIET: DISCHARGE PLAN: DISPOSITION: . DISCHARGE INSTRUCTIONS: 1. . ITEMS TO FOLLOWUP ON ON OUTPATIENT: 1. . DISCHARGE CONDITION: [Stable]. TIME SPENT ON DISCHARGE: Greater than minutes. Vital Signs/I&Os Vital Signs Date Time Temp Pulse Resp B/P (MAP) Pulse Ox O2 Delivery O2 Flow Rate FiO2 03/05/19 08:20 80 128/62 03/05/19 06:00 97.6 20 95 I&O- Last 24 Hours up to 6 AM 03/05/19 06:00 Intake Total 1020 ml Output Total 1100 ml Balance -80 ml Laboratory Data Labs 24H Laboratory Tests 2 03/05/19 05:06: Nucleated Red Blood Cells % (auto) 0.0, Blood Urea Nitrogen 27H, Creatinine 1.31H, Sodium Level 135L, Potassium Level 3.5, Chloride Level 99, Carbon Dioxide Level 27, Anion Gap 9, Glomerular Filtration Rate 40.7, Calcium Level 8.3L, Phosphorus Level 3.5#, Albumin 2.8L CBC/BMP Laboratory Tests 03/05/19 05:06 Red Blood Count 2.90 L, Mean Corpuscular Volume 101.4 H, Mean Corpuscular Hemoglobin 32.1, Mean Corpuscular Hemoglobin Concent 31.6 L, Red Cell Distribution Width 14.2, Anion Gap 9 Microbiology Microbiology 02/27/19 Urine Culture - Final, Complete Klebsiella Oxytoca Discharge Medications Scheduled Aspirin (Aspir 81) 81 Mg Tablet.dr, 81 MG PO DAILY, (Reported) Bisoprolol Fumarate (Bisoprolol Fumarate) 5 Mg Tablet, 5 MG PO DAILY, (Reported) Budesonide/Formoterol (Symbicort 160-4.5 Mcg Inhaler) 6 Gm Hfa.aer.ad, 2 PUFF INH BID, (Reported) Calcium Carbonate/Vitamin D3 (Calcium 600-Vit D3 400 Tablet) 1 Each Tablet, 1 TAB PO DAILY, (Reported) Cholecalciferol (Vitamin D3) (Vitamin D3) 2,000 Unit Capsule, 2,000 UNIT PO DAILY, (Reported) Fluticasone Propionate (Flonase Allergy Relief) 9.9 Ml [place].susp, 2 SPRAY NARES DAILY, (Reported) Gabapentin (Gabapentin) 300 Mg Capsule, 300 MG PO TID, (Reported) Levothyroxine Sodium (Synthroid) 75 Mcg Tablet, 75 MCG PO Q2D, (Reported) Loratadine (Loratadine) 10 Mg Tablet, 10 MG PO DAILY, (Reported) Omeprazole (Omeprazole) 20 Mg Capsule.dr, 20 MG PO DAILY, (Reported) Sulfasalazine (Sulfasalazine Dr) 500 Mg Tablet.dr, 500 MG PO BID, (Reported) Torsemide (Torsemide) 10 Mg Tablet, 10 MG PO BID@,17 Vits A,C,E/Zinc/Copper (Savision Tablet) 1 Each Tablet, 1 TAB PO DAILY, (Reported) Scheduled PRN Acetaminophen (Acetaminophen) 500 Mg Tablet, 1,000 MG PO Q8H PRN for PAIN, (Reported) Albuterol Sulf (Albuterol Sulfate) 2.5 Mg/3 Ml Vial.neb, 2.5 MG INH TID PRN for SHORTNESS OF BREATH, (Reported) Albuterol Sulfate (Proair Hfa) 8.5 Gm Hfa.aer.ad, 2 PUFF INH Q4H PRN for SHORTNESS OF BREATH, (Reported) Carboxymethylcellulose Sodium (Refresh Tears) 15 Ml Drops, 1 DROP OU Q2H PRN for DRY EYES, (Reported) Polyethylene Glycol 3350 (Miralax) 119 Gm Powder, 17 GM PO DAILY PRN for CONSTIP ATION, (Reported) dilute in 8 ounces of water or juice Tramadol HCl (Tramadol HCl) 50 Mg Tablet, 50 MG PO Q6H PRN for PAIN, (Reported) Allergies Coded Allergies: SEASONAL ALLERGIES (Verified Allergy, Unknown, 02/24/19) adalimumab (Verified Allergy, Unknown, 02/08/19) benzonatate (Verified Allergy, Unknown, FACIAL SWELLING, 02/24/19) morphine (Verified Adverse Reaction, Unknown, N/V, 02/24/19) Ramirez Child MD Mar 05, 2019 12:26
== END 2019-03-05 13:48 | disposition home health service (06) | DRG 917 ==
LOC: M ED 11:02 → EDBD 11:02 → M ED INP 13:29 → INTOOBSV 13:29 → M PCU 15:22 → OBSVTOIN 02-27 11:35 → M MSPAV 02-28 18:08
PROVIDERS: ADMIT Family Medicine; ATTEND Family Medicine
DX: T42.8X1A Poisoning by antiparkinsonism drugs and other central muscle-tone depressants, accidental (unintentional), initial encounter (principal); I50.33 Acute on chronic diastolic (congestive) heart failure; I13.0 Hypertensive heart and chronic kidney disease with heart failure and stage 1 through stage 4 chronic kidney disease, or unspecified chronic kidney disease; N39.0 Urinary tract infection, site not specified; E03.9 Hypothyroidism, unspecified; E78.5 Hyperlipidemia, unspecified; N18.3 Chronic kidney disease, stage 3 (moderate); M06.9 Rheumatoid arthritis, unspecified; R00.1 Bradycardia, unspecified; I95.9 Hypotension, unspecified; I25.10 Atherosclerotic heart disease of native coronary artery without angina pectoris; E55.9 Vitamin D deficiency, unspecified; J45.909 Unspecified asthma, uncomplicated; Z79.899 Other long term (current) drug therapy; Z79.82 Long term (current) use of aspirin; Z88.5 Allergy status to narcotic agent; Z88.8 Allergy status to other drugs, medicaments and biological substances; Z96.651 Presence of right artificial knee joint; Z96.652 Presence of left artificial knee joint; Z87.891 Personal history of nicotine dependence; B96.1 Klebsiella pneumoniae [K. pneumoniae] as the cause of diseases classified elsewhere; Y92.009 Unspecified place in unspecified non-institutional (private) residence as the place of occurrence of the external cause

== ENCOUNTER → 2019-03-23 | Outpatient (REF) | payer MEDICARE ==
[~2019-03-23] MED LIST changes: +ACET500T15 PO; +ALBU83IN INH; +BISO5TAB5 PO; +CALC600T18 PO; +FLON1SPR NARES; +GABA-843 PO; +LORA-622 PO; -OMEP20CA3 PO; +OMEP20CA4 PO; +REFR0.5D8 OU; +SULF50TA PO; +SYNT75TA PO; +TIZA4TAB4 PO; +VITA200021 PO
[2019-03-23 20:03] LABS: ALBUMIN 3.7 GM/DL (3.2-5.2); BILIRUBIN,TOTAL 0.2 MG/DL (0.2-1.0); CALCIUM LEVEL 9.1 MG/DL (8.8-10.2); CREATININE FOR GFR 1.15 MG/DL (0.55-1.30); GLOMERULAR FILTRATION RATE 47.3 (>32); POTASSIUM SERUM 4.7 MEQ/L (3.5-5.1); TOTAL PROTEIN 6.9 GM/DL (6.4-8.2)
== END ==
LOC: M SFHCADAM 14:03
PROVIDERS: ATTEND Physician Assistant
DX: R60.9 Edema, unspecified (principal); I12.9 Hypertensive chronic kidney disease with stage 1 through stage 4 chronic kidney disease, or unspecified chronic kidney disease; N18.3 Chronic kidney disease, stage 3 (moderate)
CPT/HCPCS: 80053; G0463

== ENCOUNTER → 2019-04-04 | Outpatient (REF) | payer MEDICARE ==
[2019-04-04 16:15] LABS: APPEARANCE, URINE CLOUDY (CLEAR); BACTERIA, URINE AUTO 3+ (NEGATIVE); BILIRUBIN, URINE AUTO NEGATIVE (NEGATIVE); BLOOD, URINE BLOOD 1+ (NEGATIVE); COLOR, URINE YELLOW (YELLOW); GLUCOSE, URINE (UA) AUTO NEGATIVE (NEGATIVE); KETONE, URINE AUTO NEGATIVE (NEGATIVE); LEUKOCYTE ESTERASE, URINE AUTO 3+ (NEGATIVE); NITRITE, URINE AUTO NEGATIVE (NEGATIVE); PROTEIN, URINE AUTO NEGATIVE (NEGATIVE); RBC, URINE AUTO 9 /HPF (0-3); SQUAMOUS EPITHELIAL CELL UR AU 1 /HPF (0-6); UROBILINOGEN, URINE AUTO 0.2 mg/dL (0.0-2.0); WBC, URINE AUTO TNTC /HPF (0-3)
== END ==
LOC: M SHH 15:42
PROVIDERS: ATTEND Physician Assistant Medical
DX: R30.0 Dysuria (principal)